=== PATIENT | male | born 1930 | race Caucasian/White ===

== ENCOUNTER 2017-11-28 09:13 | Inpatient (IN) | payer MEDICARE, OTHER ==
[~2017-11-28] VITALS: Ht 167.6 cm; Wt 82.0 kg
[2017-11-28] MEDS ORDERED: normal saline 1000ML IV soln IV ONE (09:45)
[2017-11-28] MEDS ORDERED: acetaminophen 325mg tablet PO ONE (10:20)
[2017-11-28 10:27] LABS: BASOPHILS % (AUTO) 0.1 % (0-1); EOSINOPHILS # (AUTO) 0.2 X10'3 (0-0.9); EOSINOPHILS % (AUTO) 1.9 % (0-6); HEMATOCRIT 36.2 % (42.0-52.0); HEMOGLOBIN 12.3 g/dl (14.0-17.9); LYMPHOCYTES # (AUTO) 0.5 X10'3 (1.1-4.8); LYMPHOCYTES % (AUTO) 4.2 % (21-51); MEAN CORPUSCULAR HEMOGLOBIN 28.2 PG (27.0-31.0); MEAN CORPUSCULAR HGB CONC 33.9 % (33.0-36.5); MEAN CORPUSCULAR VOLUME 83.3 FL (78-98); MEAN PLATELET VOLUME 8.1 FL (7.4-10.4); MONOCYTES # (AUTO) 1.1 X10'3 (0-0.9); MONOCYTES % (AUTO) 8.9 % (2-12); NEUTROPHILS # (AUTO) 10.9 X10'3 (1.8-7.7); NEUTROPHILS % (AUTO) 84.9 % (42-75); PLATELET COUNT 264 X10'3 (140-440); RED BLOOD COUNT 4.35 X10'6 (4.70-6.10); RED CELL DISTRIBUTION WIDTH 14.4 % (11.5-14.5); WHITE BLOOD COUNT 12.8 X10'3 (4.5-11.0)
[2017-11-28 10:37] LABS: PARTIAL THROMBOPLASTIN TIME 34 SECONDS (22-32); PROTHROMBIN TIME 20.3 SECONDS (9.0-12.0)
[2017-11-28 10:42] LABS: ALANINE AMINOTRANSFERASE 28 U/L (12-78); ALBUMIN 3.9 G/DL (3.4-5.0); ALBUMIN/GLOBULIN RATIO 0.9 (1.1-1.5); ALKALINE PHOSPHATASE 56 IU/L (46-116); ANION GAP 9 (8-16); ASPARTATE AMINO TRANSFERASE 13 U/L (10-37); BILIRUBIN,TOTAL 0.9 MG/DL (0.1-1.0); BLOOD UREA NITROGEN 49 MG/DL (7-18); BUN/CREATININE RATIO 23.8 (5.4-32.0); CALCIUM 9.1 MG/DL (8.5-10.1); CHLORIDE 106 MMOL/L (99-107); CREATININE 2.06 MG/DL (0.60-1.10); GLUCOSE 86 MG/DL (70-104); MAGNESIUM 2.3 MG/DL (1.5-2.4); POTASSIUM 4.1 MMOL/L (3.5-5.1); SODIUM 142 MMOL/L (135-145); TOTAL CARBON DIOXIDE 27.1 MMOL/L (24-32); TOTAL PROTEIN 8.4 G/DL (6.4-8.2); eGFR 31 ML/MIN
[2017-11-28 11:02] LABS: CLARITY,URINE CLEAR (Clear); COLOR,URINE YELLOW (Yellow); GLUCOSE, URINE NEGATIVE (Neg); KETONES,URINE NEGATIVE (Neg); LEUKOCYTE ESTERASE ,URINE NEGATIVE (Neg); NITRITES, URINE NEGATIVE (Neg); OCCULT BLOOD,URINE SMALL (Neg); PROTEIN,URINE NEGATIVE (Neg); UROBILINOGEN,URINE 0.2 E.U/dL (0.2-1.0)
[2017-11-28 11:10] LABS: UA COLLECTION TYPE URINAL
[2017-11-28] MEDS ORDERED: levoFLOXACIN-Levaquin 500mg/D5 100 ML IV ONE (11:10)
[2017-11-28 11:11] LABS: BACTERIA,URINE NONE SEEN /HPF (Neg); MUCUS STRANDS NONE SEEN /LPF (Neg); RBC,URINE NONE SEEN /HPF (0-2); SQUAMOUS EPITHELIAL CELL,UR FEW /LPF (FEW); WBC,URINE NONE SEEN /HPF (0-4)
[2017-11-28] MEDS ORDERED: aspirin 81mg tab.chew PO ONE (11:55)
[2017-11-28] MEDS ORDERED: DONE5TAB7 PO (12:18)
[2017-11-28] MEDS ORDERED: AMLO2.5T2 PO (12:18)
[2017-11-28] MEDS ORDERED: GLIM1TAB46 PO ×2 (12:18→14:52)
[2017-11-28] MEDS ORDERED: COU2.5T PO (12:18)
[2017-11-28] MEDS ORDERED: ASPI-1265 PO (12:18)
[2017-11-28] MEDS ORDERED: KRIL1CAP22 PR ×2 (12:18→14:52)
[2017-11-28] MEDS ORDERED: PRED5TAB PO (12:18)
[2017-11-28] MEDS ORDERED: SOTA80TA69 PO (12:18)
[2017-11-28] MEDS ORDERED: LOSA50TA3 PO (12:18)
[2017-11-28] MEDS ORDERED: CARV-50 PO (12:18)
[2017-11-28] MEDS ORDERED: oseltamivir phos 75mg capsule PO ONE (12:30)
[2017-11-28] MEDS ORDERED: magnesium hydroxide 30ml (MOM) UD suspension PO PRN (12:45)
[2017-11-28] MEDS ORDERED: magnesium 2GM in 50ml NS 50 ML IV PRN (12:45)
[2017-11-28] MEDS ORDERED: potassium Cl 20 mEq SR tablet PO PRN ×2 (12:45)
[2017-11-28] MEDS ORDERED: acetaminophen 325mg tablet PO PRN (12:45)
[2017-11-28] MEDS ORDERED: ondansetron/PF 4mg/2ml inj IV PRN (12:45)
[2017-11-28] MEDS ORDERED: magnesium 4gm in 100ml NS 100 ML IV PRN (12:45)
[2017-11-28] MEDS ORDERED: mag hydrox/Alum hydrox/simeth 30ml oral suspension PO PRN (12:45)
[2017-11-28] MEDS ORDERED: potassium Cl 40MEQ/NS 500ml 500 ML IV PRN ×2 (12:45)
[2017-11-28] MEDS ORDERED: glucagon, human recombinant 1mg kit SUBCUT PRN (12:55)
[2017-11-28] MEDS ORDERED: dextrose ORAL solution 15 GM/59 ML bottle PO PRN (12:55)
[2017-11-28] MEDS ORDERED: MESSAGE TO PHARMACY PO ONE (12:55)
[2017-11-28] MEDS ORDERED: insulin Lispro (HumaLOG) vial - multi-dose SQ SCH (12:55)
[2017-11-28] MEDS ORDERED: dextrose 50%-water 50ml dispensing syringe IV PRN ×2 (12:55)
[2017-11-28] MEDS: normal saline 1000ml 1,000 ML IV SCH (13:20)
[2017-11-28 13:59] LABS: HEMOGLOBIN A1C 7.3 % (4.5-6.2)
[2017-11-28 14:05] VITALS: BP 119/57
[2017-11-28] MEDS ORDERED: AMLO10TA13 PO (14:52)
[2017-11-28] MEDS ORDERED: SOTA80TA PO (14:52)
[2017-11-28] MEDS ORDERED: QUET50TA22 PO (14:52)
[2017-11-28] MEDS ORDERED: ASPI81TA52 PO (14:52)
[2017-11-28] MEDS ORDERED: DONE-46 PO (14:52)
[2017-11-28] MEDS ORDERED: PRE5T PO (14:52)
[2017-11-28] MEDS ORDERED: LOSA100T28 PO (14:52)
[2017-11-28] MEDS ORDERED: GABA-532 PO (14:52)
[2017-11-28] MEDS ORDERED: WARF2.5T82 PO (14:52)
[2017-11-28] MEDS ORDERED: CARV3.122 PO (14:52)
[2017-11-28 20:00] VITALS: BP 137/89
[2017-11-28] MEDS: heparin, porcine 5000 units/ml vial SQ SCH (20:50)
[2017-11-28] MEDS: oseltamivir phos 75mg capsule PO SCH (20:50)
[2017-11-28] MEDS: sotalol 80mg tablet PO SCH (20:50)
[2017-11-28] MEDS: losartan 50mg tablet PO SCH (20:51)
[2017-11-28] MEDS: aspirin 81mg tablet.DR PO SCH (20:51)
[2017-11-28] MEDS: QUEtiapine 25mg tablet PO SCH (20:51)
[2017-11-28] MEDS ORDERED: warfarin 2.5mg tablet PO SCH (21:00)
[2017-11-28] MEDS: insulin glargine (Lantus) pen - multi-dose SQ SCH (21:00)
[2017-11-29] VITALS: BP 158/74
[2017-11-29 05:44] LABS: BASOPHILS % (AUTO) 0.2 % (0-1); EOSINOPHILS # (AUTO) 0.3 X10'3 (0-0.9); EOSINOPHILS % (AUTO) 3.1 % (0-6); HEMOGLOBIN 11.4 g/dl (14.0-17.9); LYMPHOCYTES # (AUTO) 0.8 X10'3 (1.1-4.8); LYMPHOCYTES % (AUTO) 8.6 % (21-51); MEAN CORPUSCULAR HEMOGLOBIN 28.4 PG (27.0-31.0); MEAN CORPUSCULAR HGB CONC 33.5 % (33.0-36.5); MEAN CORPUSCULAR VOLUME 84.7 FL (78-98); MEAN PLATELET VOLUME 8.5 FL (7.4-10.4); MONOCYTES # (AUTO) 0.9 X10'3 (0-0.9); MONOCYTES % (AUTO) 10.2 % (2-12); NEUTROPHILS # (AUTO) 7.2 X10'3 (1.8-7.7); NEUTROPHILS % (AUTO) 77.9 % (42-75); PLATELET COUNT 237 X10'3 (140-440); RED BLOOD COUNT 4.02 X10'6 (4.70-6.10); RED CELL DISTRIBUTION WIDTH 14.4 % (11.5-14.5); WHITE BLOOD COUNT 9.2 X10'3 (4.5-11.0)
[2017-11-29 05:47] LABS: INR 1.8 INR
[2017-11-29 06:00] LABS: ALANINE AMINOTRANSFERASE 25 U/L (12-78); ALBUMIN 3.3 G/DL (3.4-5.0); ALBUMIN/GLOBULIN RATIO 0.8 (1.1-1.5); ALKALINE PHOSPHATASE 48 IU/L (46-116); ANION GAP 11 (8-16); ASPARTATE AMINO TRANSFERASE 21 U/L (10-37); BILIRUBIN,TOTAL 0.9 MG/DL (0.1-1.0); BLOOD UREA NITROGEN 45 MG/DL (7-18); BUN/CREATININE RATIO 24.6 (5.4-32.0); CALCIUM 8.4 MG/DL (8.5-10.1); CHLORIDE 106 MMOL/L (99-107); CREATININE 1.83 MG/DL (0.60-1.10); GLUCOSE 75 MG/DL (70-104); MAGNESIUM 1.9 MG/DL (1.5-2.4); POTASSIUM 3.9 MMOL/L (3.5-5.1); SODIUM 143 MMOL/L (135-145); TOTAL CARBON DIOXIDE 25.8 MMOL/L (24-32); TOTAL PROTEIN 7.6 G/DL (6.4-8.2); eGFR 35 ML/MIN
[2017-11-29] MEDS: QUEtiapine 25mg tablet PO SCH ×2 (07:18→19:53)
[2017-11-29] MEDS: gabapentin 300mg capsule PO SCH (07:18)
[2017-11-29] MEDS: sotalol 80mg tablet PO SCH ×2 (07:18→19:52)
[2017-11-29] MEDS: predniSONE 5mg tablet PO SCH (07:18)
[2017-11-29] MEDS: heparin, porcine 5000 units/ml vial SQ SCH ×2 (07:20→19:52)
[2017-11-29] MEDS: dextrose ORAL solution 15 GM/59 ML bottle PO PRN ×2 (07:21→12:28)
[2017-11-29] MEDS: K and/or MAG REPLACEMENT MC SCH (07:24)
[2017-11-29] MEDS: normal saline 1000ml 1,000 ML IV SCH (07:33)
[2017-11-29 07:48] VITALS: BP 158/65
[2017-11-29] MEDS: oseltamivir phos 75mg capsule PO SCH ×2 (08:22→19:53)
[2017-11-29 12:03] VITALS: BP 137/65
[2017-11-29 20:00] VITALS: BP 166/83
[2017-11-29] MEDS: vancomycin inj 1,250 MG in normal saline 250ml IV soln 250 ML IV SCH (20:07)
[2017-11-29] MEDS: losartan 50mg tablet PO SCH (20:07)
[2017-11-29] MEDS: aspirin 81mg tablet.DR PO SCH (20:08)
[2017-11-29] MEDS: insulin glargine (Lantus) pen - multi-dose SQ SCH (21:00)
[2017-11-29] MEDS ORDERED: warfarin 5mg tablet PO ONE (21:00)
[2017-11-29] MEDS: magnesium Cl slow-release 64mg tablet PO PRN (22:58)
[2017-11-30 03:00] VITALS: BP 139/72
[2017-11-30] MEDS: normal saline 1000ml 1,000 ML IV SCH (05:18)
[2017-11-30 05:49] LABS: BASOPHILS % (AUTO) 0.2 % (0-1); EOSINOPHILS # (AUTO) 0.2 X10'3 (0-0.9); EOSINOPHILS % (AUTO) 2.5 % (0-6); HEMATOCRIT 34.5 % (42.0-52.0); HEMOGLOBIN 11.6 g/dl (14.0-17.9); LYMPHOCYTES # (AUTO) 0.6 X10'3 (1.1-4.8); MEAN CORPUSCULAR HEMOGLOBIN 28.5 PG (27.0-31.0); MEAN CORPUSCULAR HGB CONC 33.6 % (33.0-36.5); MEAN CORPUSCULAR VOLUME 84.7 FL (78-98); MEAN PLATELET VOLUME 8.3 FL (7.4-10.4); MONOCYTES % (AUTO) 14.6 % (2-12); NEUTROPHILS # (AUTO) 5.1 X10'3 (1.8-7.7); NEUTROPHILS % (AUTO) 73.7 % (42-75); PLATELET COUNT 216 X10'3 (140-440); RED BLOOD COUNT 4.08 X10'6 (4.70-6.10); RED CELL DISTRIBUTION WIDTH 14.8 % (11.5-14.5); WHITE BLOOD COUNT 6.9 X10'3 (4.5-11.0)
[2017-11-30 06:05] LABS: INR 1.4 INR; PROTHROMBIN TIME 14.7 SECONDS (9.0-12.0)
[2017-11-30 06:14] LABS: ALANINE AMINOTRANSFERASE 23 U/L (12-78); ALBUMIN 3.1 G/DL (3.4-5.0); ALBUMIN/GLOBULIN RATIO 0.7 (1.1-1.5); ALKALINE PHOSPHATASE 48 IU/L (46-116); ANION GAP 11 (8-16); ASPARTATE AMINO TRANSFERASE 28 U/L (10-37); BILIRUBIN,TOTAL 1.2 MG/DL (0.1-1.0); BLOOD UREA NITROGEN 37 MG/DL (7-18); BUN/CREATININE RATIO 19.3 (5.4-32.0); CALCIUM 8.4 MG/DL (8.5-10.1); CHLORIDE 108 MMOL/L (99-107); CREATININE 1.92 MG/DL (0.60-1.10); GLUCOSE 104 MG/DL (70-104); POTASSIUM 4.5 MMOL/L (3.5-5.1); SODIUM 144 MMOL/L (135-145); TOTAL CARBON DIOXIDE 25.5 MMOL/L (24-32); TOTAL PROTEIN 7.5 G/DL (6.4-8.2); eGFR 33 ML/MIN
[2017-11-30 07:00] VITALS: BP 152/81
[2017-11-30] MEDS: magnesium Cl slow-release 64mg tablet PO PRN ×2 (07:38→19:29)
[2017-11-30] MEDS: predniSONE 5mg tablet PO SCH (07:38)
[2017-11-30] MEDS: oseltamivir phos 75mg capsule PO SCH ×2 (07:39→19:29)
[2017-11-30] MEDS: gabapentin 300mg capsule PO SCH (07:39)
[2017-11-30] MEDS: sotalol 80mg tablet PO SCH ×2 (07:39→19:29)
[2017-11-30] MEDS: heparin, porcine 5000 units/ml vial SQ SCH ×2 (07:39→19:28)
[2017-11-30] MEDS: QUEtiapine 25mg tablet PO SCH ×2 (07:39→19:29)
[2017-11-30] MEDS: K and/or MAG REPLACEMENT MC SCH (07:47)
[2017-11-30 11:00] VITALS: BP 129/70
[2017-11-30] MEDS: vancomycin inj 1,250 MG in normal saline 250ml IV soln 250 ML IV SCH (19:29)
[2017-11-30 20:00] VITALS: BP 138/72
[2017-11-30] MEDS: losartan 50mg tablet PO SCH (20:25)
[2017-11-30] MEDS: aspirin 81mg tablet.DR PO SCH (20:25)
[2017-11-30] MEDS: insulin glargine (Lantus) pen - multi-dose SQ SCH (21:00)
[2017-11-30] MEDS ORDERED: warfarin 5mg tablet PO ONE (21:00)
[2017-12-01] VITALS: BP 143/76
[2017-12-01] MEDS: normal saline 1000ml 1,000 ML IV SCH ×2 (00:41→04:08)
[2017-12-01 05:58] LABS: BASOPHILS % (AUTO) 0.3 % (0-1); EOSINOPHILS # (AUTO) 0.2 X10'3 (0-0.9); EOSINOPHILS % (AUTO) 3.8 % (0-6); HEMATOCRIT 30.3 % (42.0-52.0); HEMOGLOBIN 10.3 g/dl (14.0-17.9); LYMPHOCYTES # (AUTO) 0.7 X10'3 (1.1-4.8); LYMPHOCYTES % (AUTO) 12.1 % (21-51); MEAN CORPUSCULAR VOLUME 82.4 FL (78-98); MEAN PLATELET VOLUME 8.1 FL (7.4-10.4); MONOCYTES # (AUTO) 0.9 X10'3 (0-0.9); MONOCYTES % (AUTO) 15.9 % (2-12); NEUTROPHILS # (AUTO) 3.8 X10'3 (1.8-7.7); NEUTROPHILS % (AUTO) 67.9 % (42-75); PLATELET COUNT 189 X10'3 (140-440); RED BLOOD COUNT 3.67 X10'6 (4.70-6.10); RED CELL DISTRIBUTION WIDTH 14.8 % (11.5-14.5); WHITE BLOOD COUNT 5.6 X10'3 (4.5-11.0)
[2017-12-01 06:00] LABS: INR 1.4 INR; PROTHROMBIN TIME 14.4 SECONDS (9.0-12.0)
[2017-12-01 06:12] LABS: ALANINE AMINOTRANSFERASE 23 U/L (12-78); ALBUMIN 2.8 G/DL (3.4-5.0); ALBUMIN/GLOBULIN RATIO 0.7 (1.1-1.5); ALKALINE PHOSPHATASE 42 IU/L (46-116); ANION GAP 11 (8-16); ASPARTATE AMINO TRANSFERASE 24 U/L (10-37); BILIRUBIN,TOTAL 0.9 MG/DL (0.1-1.0); BLOOD UREA NITROGEN 29 MG/DL (7-18); BUN/CREATININE RATIO 17.6 (5.4-32.0); CALCIUM 7.9 MG/DL (8.5-10.1); CHLORIDE 110 MMOL/L (99-107); CREATININE 1.65 MG/DL (0.60-1.10); GLUCOSE 125 MG/DL (70-104); POTASSIUM 4.2 MMOL/L (3.5-5.1); SODIUM 143 MMOL/L (135-145); TOTAL CARBON DIOXIDE 22.5 MMOL/L (24-32); TOTAL PROTEIN 6.6 G/DL (6.4-8.2); eGFR 39 ML/MIN
[2017-12-01 07:00] VITALS: BP 151/75
[2017-12-01] MEDS: gabapentin 300mg capsule PO SCH (07:34)
[2017-12-01] MEDS: sotalol 80mg tablet PO SCH ×2 (07:34→20:00)
[2017-12-01] MEDS: oseltamivir phos 75mg capsule PO SCH ×2 (07:34→21:01)
[2017-12-01] MEDS: predniSONE 5mg tablet PO SCH (07:34)
[2017-12-01] MEDS: heparin, porcine 5000 units/ml vial SQ SCH ×2 (07:35→21:02)
[2017-12-01] MEDS: QUEtiapine 25mg tablet PO SCH ×2 (07:41→20:59)
[2017-12-01] MEDS: magnesium Cl slow-release 64mg tablet PO PRN (07:42)
[2017-12-01] MEDS: K and/or MAG REPLACEMENT MC SCH (08:00)
[2017-12-01 11:00] VITALS: BP 148/71
[2017-12-01 19:00] VITALS: BP 142/70
[2017-12-01] MEDS ORDERED: warfarin 7.5mg tablet PO ONE (21:00)
[2017-12-01] MEDS: insulin glargine (Lantus) pen - multi-dose SQ SCH (21:00)
[2017-12-01] MEDS: lactobacillus rhamnosus 10,000 MMU CELLS/CAPSULE PO SCH (21:01)
[2017-12-01] MEDS: aspirin 81mg tablet.DR PO SCH (21:01)
[2017-12-01] MEDS: losartan 50mg tablet PO SCH (21:03)
[2017-12-01] MEDS: vancomycin inj 1,250 MG in normal saline 250ml IV soln 250 ML IV SCH (21:07)
[2017-12-02] VITALS: BP 134/80
[2017-12-02 05:33] LABS: BASOPHILS % (AUTO) 0.3 % (0-1); EOSINOPHILS # (AUTO) 0.4 X10'3 (0-0.9); EOSINOPHILS % (AUTO) 5.9 % (0-6); HEMATOCRIT 29.5 % (42.0-52.0); HEMOGLOBIN 9.9 g/dl (14.0-17.9); LYMPHOCYTES % (AUTO) 16.6 % (21-51); MEAN CORPUSCULAR HGB CONC 33.4 % (33.0-36.5); MEAN CORPUSCULAR VOLUME 83.9 FL (78-98); MEAN PLATELET VOLUME 7.9 FL (7.4-10.4); MONOCYTES # (AUTO) 0.8 X10'3 (0-0.9); MONOCYTES % (AUTO) 14.1 % (2-12); NEUTROPHILS # (AUTO) 3.7 X10'3 (1.8-7.7); NEUTROPHILS % (AUTO) 63.1 % (42-75); PLATELET COUNT 179 X10'3 (140-440); RED BLOOD COUNT 3.52 X10'6 (4.70-6.10); RED CELL DISTRIBUTION WIDTH 14.2 % (11.5-14.5); WHITE BLOOD COUNT 5.9 X10'3 (4.5-11.0)
[2017-12-02 05:41] LABS: INR 1.5 INR; PROTHROMBIN TIME 15.6 SECONDS (9.0-12.0)
[2017-12-02 05:55] LABS: ALANINE AMINOTRANSFERASE 27 U/L (12-78); ALBUMIN 2.6 G/DL (3.4-5.0); ALBUMIN/GLOBULIN RATIO 0.7 (1.1-1.5); ALKALINE PHOSPHATASE 42 IU/L (46-116); ANION GAP 10 (8-16); ASPARTATE AMINO TRANSFERASE 21 U/L (10-37); BILIRUBIN,TOTAL 0.6 MG/DL (0.1-1.0); BLOOD UREA NITROGEN 27 MG/DL (7-18); BUN/CREATININE RATIO 17.9 (5.4-32.0); CALCIUM 7.3 MG/DL (8.5-10.1); CHLORIDE 112 MMOL/L (99-107); CREATININE 1.51 MG/DL (0.60-1.10); GLUCOSE 113 MG/DL (70-104); MAGNESIUM 1.9 MG/DL (1.5-2.4); SODIUM 144 MMOL/L (135-145); TOTAL CARBON DIOXIDE 21.8 MMOL/L (24-32); TOTAL PROTEIN 6.2 G/DL (6.4-8.2); eGFR 44 ML/MIN
[2017-12-02 06:30] VITALS: BP 139/70
[2017-12-02] MEDS: K and/or MAG REPLACEMENT MC SCH (08:00)
[2017-12-02] MEDS: lactobacillus rhamnosus 10,000 MMU CELLS/CAPSULE PO SCH ×2 (08:03→19:38)
[2017-12-02] MEDS: sotalol 80mg tablet PO SCH ×2 (08:03→19:38)
[2017-12-02] MEDS: gabapentin 300mg capsule PO SCH (08:03)
[2017-12-02] MEDS: predniSONE 5mg tablet PO SCH (08:04)
[2017-12-02] MEDS: QUEtiapine 25mg tablet PO SCH (08:04)
[2017-12-02] MEDS: heparin, porcine 5000 units/ml vial SQ SCH ×2 (08:05→19:38)
[2017-12-02] MEDS: oseltamivir phos 75mg capsule PO SCH ×2 (08:05→19:38)
[2017-12-02] MEDS ORDERED: magnesium 4gm in 100ml NS 100 ML IV PRN (11:00)
[2017-12-02] MEDS ORDERED: magnesium 2GM in 50ml NS 50 ML IV PRN (11:00)
[2017-12-02] MEDS ORDERED: magnesium Cl slow-release 64mg tablet PO PRN (11:00)
[2017-12-02 12:29] VITALS: BP 121/65
[2017-12-02] MEDS: normal saline 1000ml 1,000 ML IV SCH (16:55)
[2017-12-02 18:30] VITALS: BP 142/71
[2017-12-02] MEDS ORDERED: VANCOMYCIN LEVEL IV ONE (19:30)
[2017-12-02] MEDS: vancomycin inj 1,250 MG in normal saline 250ml IV soln 250 ML IV SCH (19:38)
[2017-12-02] MEDS ORDERED: warfarin 10mg tablet PO ONE (21:00)
[2017-12-02] MEDS ORDERED: QUEtiapine 25mg tablet PO SCH (21:00)
[2017-12-02] MEDS: insulin glargine (Lantus) pen - multi-dose SQ SCH (21:50)
[2017-12-02] MEDS: losartan 50mg tablet PO SCH (21:54)
[2017-12-02] MEDS: aspirin 81mg tablet.DR PO SCH (21:54)
[2017-12-03] VITALS: BP 144/76
[2017-12-03 06:13] LABS: BASOPHILS % (AUTO) 0.2 % (0-1); EOSINOPHILS # (AUTO) 0.3 X10'3 (0-0.9); HEMOGLOBIN 10.1 g/dl (14.0-17.9); LYMPHOCYTES # (AUTO) 0.9 X10'3 (1.1-4.8); LYMPHOCYTES % (AUTO) 14.4 % (21-51); MEAN CORPUSCULAR HEMOGLOBIN 28.1 PG (27.0-31.0); MEAN CORPUSCULAR HGB CONC 33.7 % (33.0-36.5); MEAN CORPUSCULAR VOLUME 83.3 FL (78-98); MEAN PLATELET VOLUME 7.9 FL (7.4-10.4); MONOCYTES # (AUTO) 0.8 X10'3 (0-0.9); MONOCYTES % (AUTO) 12.3 % (2-12); NEUTROPHILS # (AUTO) 4.2 X10'3 (1.8-7.7); NEUTROPHILS % (AUTO) 68.1 % (42-75); PLATELET COUNT 189 X10'3 (140-440); RED CELL DISTRIBUTION WIDTH 14.2 % (11.5-14.5); WHITE BLOOD COUNT 6.1 X10'3 (4.5-11.0)
[2017-12-03 06:30] LABS: INR 2.1 INR; PROTHROMBIN TIME 20.2 SECONDS (9.0-12.0)
[2017-12-03 06:42] LABS: ALANINE AMINOTRANSFERASE 25 U/L (12-78); ALBUMIN 2.8 G/DL (3.4-5.0); ALBUMIN/GLOBULIN RATIO 0.7 (1.1-1.5); ALKALINE PHOSPHATASE 46 IU/L (46-116); ANION GAP 12 (8-16); ASPARTATE AMINO TRANSFERASE 19 U/L (10-37); BILIRUBIN,TOTAL 0.6 MG/DL (0.1-1.0); BLOOD UREA NITROGEN 25 MG/DL (7-18); BUN/CREATININE RATIO 17.9 (5.4-32.0); CALCIUM 7.6 MG/DL (8.5-10.1); CHLORIDE 113 MMOL/L (99-107); GLUCOSE 120 MG/DL (70-104); POTASSIUM 3.9 MMOL/L (3.5-5.1); SODIUM 145 MMOL/L (135-145); TOTAL CARBON DIOXIDE 19.9 MMOL/L (24-32); TOTAL PROTEIN 6.9 G/DL (6.4-8.2); eGFR 48 ML/MIN
[2017-12-03] MEDS ORDERED: potassium Cl 20 mEq SR tablet PO PRN ×2 (06:50)
[2017-12-03] MEDS ORDERED: potassium Cl 40MEQ/NS 500ml 500 ML IV PRN ×2 (06:50)
[2017-12-03 07:28] VITALS: BP 154/73
[2017-12-03] MEDS: K and/or MAG REPLACEMENT MC SCH (08:00)
[2017-12-03] MEDS: sotalol 80mg tablet PO SCH (08:07)
[2017-12-03] MEDS: gabapentin 300mg capsule PO SCH (08:07)
[2017-12-03] MEDS: predniSONE 5mg tablet PO SCH (08:07)
[2017-12-03] MEDS: oseltamivir phos 75mg capsule PO SCH (08:07)
[2017-12-03] MEDS: lactobacillus rhamnosus 10,000 MMU CELLS/CAPSULE PO SCH (08:08)
[2017-12-03] MEDS: heparin, porcine 5000 units/ml vial SQ SCH (08:08)
[2017-12-03 11:23] VITALS: BP 148/70
[2017-12-03] MEDS: normal saline 1000ml 1,000 ML IV SCH (12:48)
[2017-12-03] MEDS ORDERED: SOTA80TA69 PO (14:26)
[2017-12-03] MEDS ORDERED: QUEtiapine 25mg tablet PO SCH (15:00)
[2017-12-03] MEDS ORDERED: warfarin 5mg tablet PO ONE ×2 (17:00→21:00)
== END 2017-12-03 17:33 | disposition home or self-care (01) | DRG 871 ==
LOC: ER 09:20 → ED HOLD 12:41 → MED 3N 13:20
PROVIDERS: ADMIT Internal Medicine; ATTEND Internal Medicine
DX: A41.9 Sepsis, unspecified organism (principal); G93.41 Metabolic encephalopathy; E11.22 Type 2 diabetes mellitus with diabetic chronic kidney disease; E11.42 Type 2 diabetes mellitus with diabetic polyneuropathy; I47.1 Supraventricular tachycardia; I48.91 Unspecified atrial fibrillation; J10.01 Influenza due to other identified influenza virus with the same other identified influenza virus pneumonia; D63.8 Anemia in other chronic diseases classified elsewhere; G30.9 Alzheimer's disease, unspecified; N18.3 Chronic kidney disease, stage 3 (moderate); F02.80 Dementia in other diseases classified elsewhere, unspecified severity, without behavioral disturbance, psychotic disturbance, mood disturbance, and anxiety; I12.9 Hypertensive chronic kidney disease with stage 1 through stage 4 chronic kidney disease, or unspecified chronic kidney disease; M06.9 Rheumatoid arthritis, unspecified; M81.0 Age-related osteoporosis without current pathological fracture; M19.90 Unspecified osteoarthritis, unspecified site; Z60.2 Problems related to living alone; Z79.01 Long term (current) use of anticoagulants; Z88.6 Allergy status to analgesic agent; Z88.8 Allergy status to other drugs, medicaments and biological substances; Z85.72 Personal history of non-Hodgkin lymphomas; Z87.891 Personal history of nicotine dependence
CPT/HCPCS: 36415; 71045; 80053; 80202; 81001; 82948; 83036; 83605; 83735; 84145; 84484; 85025; 85610; 85730; 87040; 87070; 87077; 87186; 87502; 87503; 93005; 96365; 97110; 97116; 97162; 97530; 99285; J1644; J1815; J1956; J3370; J7030; J7512

== ENCOUNTER 2017-12-20 08:47 | Emergency (ER) | payer MEDICARE, OTHER ==
[~2017-12-20] VITALS: Ht 175.3 cm; Wt 195.0 kg
[~2017-12-20 08:47] MED LIST: AMLO10TA13 PO; ASPI81TA52 PO; DONE-46 PO; GABA-532 PO; GLIM1TAB46 PO; KRIL1CAP22 PR; LOSA100T28 PO; QUET50TA22 PO; SOTA80TA69 PO; WARF2.5T82 PO
[2017-12-20] MEDS ORDERED: normal saline 1000ML IV soln IVB ONE ×2 (08:55→09:50)
[2017-12-20 09:06] LABS: BASOPHILS % (AUTO) 0.3 % (0-1); EOSINOPHILS # (AUTO) 0.5 X10'3 (0-0.9); EOSINOPHILS % (AUTO) 5.6 % (0-6); HEMATOCRIT 30.8 % (42.0-52.0); HEMOGLOBIN 10.4 g/dl (14.0-17.9); LYMPHOCYTES # (AUTO) 0.7 X10'3 (1.1-4.8); LYMPHOCYTES % (AUTO) 8.3 % (21-51); MEAN CORPUSCULAR HEMOGLOBIN 27.9 PG (27.0-31.0); MEAN CORPUSCULAR HGB CONC 33.8 % (33.0-36.5); MEAN CORPUSCULAR VOLUME 82.4 FL (78-98); MEAN PLATELET VOLUME 7.9 FL (7.4-10.4); MONOCYTES % (AUTO) 11.8 % (2-12); NEUTROPHILS # (AUTO) 6.1 X10'3 (1.8-7.7); PLATELET COUNT 370 X10'3 (140-440); RED BLOOD COUNT 3.74 X10'6 (4.70-6.10); RED CELL DISTRIBUTION WIDTH 14.7 % (11.5-14.5); WHITE BLOOD COUNT 8.2 X10'3 (4.5-11.0)
[2017-12-20 09:18] LABS: INR 1.4 INR; PROTHROMBIN TIME 14.1 SECONDS (9.0-12.0)
[2017-12-20 09:26] LABS: ALANINE AMINOTRANSFERASE 23 U/L (12-78); ALBUMIN 3.3 G/DL (3.4-5.0); ALBUMIN/GLOBULIN RATIO 0.7 (1.1-1.5); ALKALINE PHOSPHATASE 63 IU/L (46-116); ANION GAP 9 (8-16); ASPARTATE AMINO TRANSFERASE 17 U/L (10-37); BILIRUBIN,TOTAL 0.5 MG/DL (0.1-1.0); BLOOD UREA NITROGEN 81 MG/DL (7-18); BUN/CREATININE RATIO 21.3 (5.4-32.0); CALCIUM 8.8 MG/DL (8.5-10.1); CHLORIDE 101 MMOL/L (99-107); GLUCOSE 151 MG/DL (70-104); POTASSIUM 4.9 MMOL/L (3.5-5.1); SODIUM 138 MMOL/L (135-145); TOTAL CARBON DIOXIDE 28.1 MMOL/L (24-32); TOTAL PROTEIN 8.1 G/DL (6.4-8.2); TROPONIN I < 0.04 NG/ML (0.0-0.05); eGFR 15 ML/MIN
[2017-12-20 10:45] LABS: CLARITY,URINE SLIGHTLY CLOUDY (Clear); COLOR,URINE YELLOW (Yellow); GLUCOSE, URINE NEGATIVE (Neg); KETONES,URINE NEGATIVE (Neg); LEUKOCYTE ESTERASE ,URINE NEGATIVE (Neg); NITRITES, URINE NEGATIVE (Neg); OCCULT BLOOD,URINE NEGATIVE (Neg); PROTEIN,URINE NEGATIVE (Neg); UROBILINOGEN,URINE 0.2 E.U/dL (0.2-1.0)
[2017-12-20 10:56] LABS: UA COLLECTION TYPE URINAL
[2017-12-20 10:58] LABS: BACTERIA,URINE NONE SEEN /HPF (Neg); HYALINE CASTS 0-3 /LPF (NEGATIVE); RBC,URINE NONE SEEN /HPF (0-2); SQUAMOUS EPITHELIAL CELL,UR FEW /LPF (FEW); WBC,URINE 0-4 /HPF (0-4)
[2017-12-20 10:59] LABS: AMORPHOUS URATES 1+; MUCUS STRANDS FEW /LPF (Neg)
[2017-12-20 12:10] VITALS: BP 105/64
[2017-12-20] MEDS ORDERED: LORazepam 2 mg/ml vial IV ONE (12:40)
[2017-12-20] MEDS ORDERED: SOTA80TA PO (17:00)
[2017-12-21] MEDS ORDERED: ALLO100T (17:16)
== END 2017-12-20 15:05 | disposition home or self-care (01) ==
LOC: ER 08:48
DX: E86.0 Dehydration (principal); N17.9 Acute kidney failure, unspecified; R41.82 Altered mental status, unspecified; F03.90 Unspecified dementia, unspecified severity, without behavioral disturbance, psychotic disturbance, mood disturbance, and anxiety; I48.91 Unspecified atrial fibrillation; E11.9 Type 2 diabetes mellitus without complications; I10 Essential (primary) hypertension; M06.9 Rheumatoid arthritis, unspecified; M81.0 Age-related osteoporosis without current pathological fracture; M19.90 Unspecified osteoarthritis, unspecified site; Z79.82 Long term (current) use of aspirin; Z79.01 Long term (current) use of anticoagulants; Z79.899 Other long term (current) drug therapy
CPT/HCPCS: 36415; 51702; 70450; 71045; 80053; 81001; 84484; 85025; 85610; 93005; 96361; 96374; 99285; A4315; A4353; J2060; J7030

== ENCOUNTER 2017-12-20 16:23 | Inpatient (IN) | payer MEDICARE, OTHER ==
[~2017-12-20] VITALS: Ht 175.3 cm; Wt 110.0 kg
[2017-12-20] MEDS ORDERED: morphine 10mg/ml inj. IV PRN (16:40)
[2017-12-20] MEDS ORDERED: magnesium hydroxide 30ml (MOM) UD suspension PO PRN (16:40)
[2017-12-20] MEDS ORDERED: acetaminophen 325mg tablet PO PRN ×2 (16:40)
[2017-12-20] MEDS ORDERED: ondansetron/PF 4mg/2ml inj IV PRN (16:40)
[2017-12-20] MEDS ORDERED: mag hydrox/Alum hydrox/simeth 30ml oral suspension PO PRN (16:40)
[2017-12-20] MEDS ORDERED: SOTA80TA PO (17:00)
[2017-12-20 20:25] VITALS: BP 132/68
[2017-12-20] MEDS: docusate sod 100mg capsule PO SCH (23:03)
[2017-12-20] MEDS: QUEtiapine 25mg tablet PO SCH (23:05)
[2017-12-20] MEDS: sennosides/docusate sodium tablet PO SCH (23:05)
[2017-12-21 08:00] VITALS: BP 150/78
[2017-12-21] MEDS: docusate sod 100mg capsule PO SCH ×2 (09:00→20:00)
[2017-12-21] MEDS: sennosides/docusate sodium tablet PO SCH ×2 (09:00→20:00)
[2017-12-21] MEDS: QUEtiapine 25mg tablet PO SCH ×2 (09:00→20:00)
[2017-12-21] MEDS: donepezil 5mg tablet PO SCH (09:00)
[2017-12-21] MEDS: LORazepam 2 mg/ml vial IV PRN (12:34)
[2017-12-21] MEDS ORDERED: ALLO100T (17:16)
[2017-12-21 20:00] VITALS: BP 156/77
[2017-12-22] VITALS: BP 131/64
[2017-12-22 07:00] VITALS: BP 141/86
[2017-12-22] MEDS: QUEtiapine 25mg tablet PO SCH (08:00)
[2017-12-22] MEDS: docusate sod 100mg capsule PO SCH (08:00)
[2017-12-22] MEDS: donepezil 5mg tablet PO SCH (08:00)
[2017-12-22] MEDS: sennosides/docusate sodium tablet PO SCH (08:00)
[2017-12-22] MEDS: LORazepam 2 mg/ml vial IV PRN (10:09)
== END 2017-12-22 16:05 | disposition hospice, home (50) | DRG 682 ==
LOC: ER 16:23 → SUR 3N 16:36 → CMPBEDREQ 22:32
PROVIDERS: ADMIT Legal Medicine; ATTEND Legal Medicine
DX: N17.9 Acute kidney failure, unspecified (principal); G93.41 Metabolic encephalopathy; I48.91 Unspecified atrial fibrillation; E11.22 Type 2 diabetes mellitus with diabetic chronic kidney disease; E86.0 Dehydration; D64.9 Anemia, unspecified; F03.90 Unspecified dementia, unspecified severity, without behavioral disturbance, psychotic disturbance, mood disturbance, and anxiety; M06.9 Rheumatoid arthritis, unspecified; I12.9 Hypertensive chronic kidney disease with stage 1 through stage 4 chronic kidney disease, or unspecified chronic kidney disease; M19.90 Unspecified osteoarthritis, unspecified site; M81.0 Age-related osteoporosis without current pathological fracture; N18.9 Chronic kidney disease, unspecified; Z60.2 Problems related to living alone; Z66 Do not resuscitate; Z51.5 Encounter for palliative care; Z88.6 Allergy status to analgesic agent; Z88.8 Allergy status to other drugs, medicaments and biological substances; Z79.899 Other long term (current) drug therapy; Z79.01 Long term (current) use of anticoagulants; Z79.82 Long term (current) use of aspirin; Z85.72 Personal history of non-Hodgkin lymphomas
CPT/HCPCS: 87070; J2060